=== PATIENT | female | born 1960 ===

== ENCOUNTER 2019-03-13 15:21 | Outpatient (REF) | payer SELFPAY ==
[2019-03-13 22:03] LABS: Calculated LDL 110 mg/dL; Cholesterol 174 mg/dL (<200); HDL Cholesterol 43 mg/dL (40-60); Triglyceride 106 mg/dL (<150)
[2019-03-13 22:09] LABS: Hemoglobin A1C 6.1 % (3.8-5.6)
== END 2019-03-13 15:41 ==
LOC: NCHCN 15:21
PROVIDERS: PCP Nurse Practitioner Family; Visit Provider Nurse Practitioner Family
DX: R73.03 Prediabetes (principal); E66.9 Obesity, unspecified; Z13.220 Encounter for screening for lipoid disorders
CPT/HCPCS: 80061; 83036

== ENCOUNTER 2020-01-14 16:31 | Outpatient (REF) | payer SELFPAY ==
--- NOTE | 2020-01-14 14:00 | PAPFT_PTH ---
PATIENT: Johanna Mcgregor LOC: [facility] U#:[id number] AGE/SX: 59/F ROOM: RE01/14/[address]: Yanci Blanc : 1960 BED: DIS: 01/14/2020 SPEC #: [id number] RECD: 01/15/20 12:47 STATUS: CHETAN REQ #: [id number] EARNEST: 01/14/20 14:[address]: Yanci Blanc DEPT: [facility] Cytology RECD BY: Brie Lopez ENTERED: 01/15/20 12:48 SP TYPE: PAPFT OTHR DR: Cyn Braxton Tissues: 1 - CX/ENDOCX FOR PAP SMEARS Procedures: PAP THIN PREP/[facility] Screening HPV DNA PROBE Comments: [id number] ([facility]#)
== END 2020-01-14 16:51 ==
LOC: NCHCN 16:31
PROVIDERS: PCP Nurse Practitioner Family; Visit Provider Nurse Practitioner Community Health
DX: Z12.4 Encounter for screening for malignant neoplasm of cervix (principal)
CPT/HCPCS: 88142; 87624

== ENCOUNTER 2020-11-24 15:28 | Outpatient (REF) | payer MEDICAID, SELFPAY ==
[2020-11-24 21:03] LABS: Anion Gap 7.8 mmol/L (3-11); BUN 12 mg/dL (7-18); CO2 29.2 mmol/L (21.0-32.0); CREATININE 0.9 mg/dL (0.55-1.02); Calcium 9.7 mg/dL (8.5-10.1); Chloride 107 mmol/L (98-107); Glucose 90 mg/dL (74-106); Potassium 4.3 mmol/L (3.5-5.1); Sodium 144 mmol/L (136-145)
== END 2020-11-24 15:29 | disposition home or self-care (01) ==
LOC: NCHCN 15:28
PROVIDERS: PCP Nurse Practitioner Family; Visit Provider Nurse Practitioner Community Health
DX: Q60.0 Renal agenesis, unilateral (principal)
CPT/HCPCS: 80048

== ENCOUNTER 2021-01-01 08:31 | Outpatient (REF) | payer MEDICAID, SELFPAY ==
[2021-01-03 12:12] LABS: COVID-19 RT-PCR UVMMC Result Negative (Negative)
== END 2021-01-01 08:32 | disposition home or self-care (01) ==
LOC: NCHCN 08:31
PROVIDERS: PCP Nurse Practitioner Family; Visit Provider Nurse Practitioner Community Health
DX: Z20.822 Contact with and (suspected) exposure to COVID-19 (principal); J06.9 Acute upper respiratory infection, unspecified
CPT/HCPCS: U0003

== ENCOUNTER 2022-03-03 09:25 | Outpatient (REF) | payer MEDICAID, SELFPAY | END 2022-03-03 09:26 | disposition home or self-care (01) | LOC: NCHCN 09:25 | PROVIDERS: PCP Nurse Practitioner Family; Visit Provider Registered Nurse | DX: N95.2 Postmenopausal atrophic vaginitis (principal) | CPT/HCPCS: 87480; 87510; 87660 ==

== ENCOUNTER 2022-06-02 11:36 | Outpatient (REF) | payer MEDICAID, SELFPAY ==
[2022-06-02 21:29] LABS: Hemoglobin A1C 6.1 % (<5.7)
[2022-06-02 21:30] LABS: Calculated LDL 109 mg/dL (<100); Cholesterol 177 mg/dL (<200); HDL Cholesterol 42 mg/dL (40-60); Triglyceride 131 mg/dL (<150)
== END 2022-06-02 11:37 | disposition home or self-care (01) ==
LOC: NCHCN 11:36
PROVIDERS: PCP Nurse Practitioner Family; Visit Provider Registered Nurse
DX: R73.03 Prediabetes (principal); E66.8 Other obesity
CPT/HCPCS: 80061; 83036

== ENCOUNTER 2024-12-27 13:26 | Outpatient (REF) | payer MEDICAID, SELFPAY ==
--- NOTE | 2024-12-27 09:35 | PAPFT_PTH ---
PATIENT: Johanna Mcgregor LOC: [facility]#:[id number] AGE/SX: 64/F ROOM: RE12/27/[address]: SUE: 1960 BED: DIS: 12/27/2024 SPEC #: [id number] RECD: 12/27/24 18:06 STATUS: CHETAN LOPEZ #: [id number] EARNEST: 12/27/24 09:[address]: Luci Lee DEPT: COUNTS INCLUDE 234 BEDS AT [facility] Cytology RECD BY: Brie Lopez ENTERED: 12/27/24 18:06 SP TYPE: PAPFT OTHR DR: Cyn Braxton Tissues: 1 - CX/ENDOCX FOR PAP SMEARS Procedures: PAP THIN PREP/[facility] Screening HPV DNA PROBE Comments: [id number] (HPV 16 & 18/45)
== END 2024-12-27 13:27 | disposition home or self-care (01) ==
LOC: NCHCN 13:26
PROVIDERS: PCP Nurse Practitioner Family; Visit Provider Family Medicine
DX: Z12.4 Encounter for screening for malignant neoplasm of cervix (principal)
CPT/HCPCS: 88142; 87624